=== PATIENT | female | born 1950 | race Caucasian/White ===

== ENCOUNTER 2021-10-03 09:19 | Day surgery (SDC) | payer OTHER, MEDICARE ==
[~2021-10-03] VITALS: Ht 170.2 cm; Wt 70.3 kg
[2021-10-03] MEDS ORDERED: OXYMETAZOLINE HCL 0.05% NASAL SPRAY NS ONE (12:25)
[2021-10-03] MEDS ORDERED: ONDANSETRON HCL 4 MG/2 ML VIAL IVP ONE (12:25)
[2021-10-03] MEDS ORDERED: LIDOCAINE 1% 10 MG/ML, 20 ML MDV INJ ONE (12:25)
[2021-10-03] MEDS ORDERED: WATER FOR IRRIGATION,STERILE 1,000 ML IRRIG.SOLN IR ONE (12:25)
[2021-10-03] MEDS ORDERED: KETOROLAC TROMETHAMINE 30 MG VIAL IVP ONE (12:25)
[2021-10-03] MEDS ORDERED: LIDOCAINE/EPI 1% 1:100000 20 ML VIAL INJ ONE (12:25)
[2021-10-03] MEDS ORDERED: NS 1000 ML IV.SOLN IV ONE (12:25)
[2021-10-03] MEDS ORDERED: NS IRRIG SOLN 1000 ML IR ONE (12:25)
[2021-10-03] MEDS ORDERED: EPINEPHrine HCL 1 MG/ML VIAL IV ONE (12:25)
[2021-10-03] MEDS ORDERED: DESFLURANE 15 MIN GAS INH ONE (12:25)
[2021-10-03] MEDS ORDERED: ROCURONIUM BROMIDE 10 MG/ML (ZEMURON) IV ONE (12:25)
[2021-10-03] MEDS ORDERED: PROPOFOL 200MG/ 20ML VIAL (DIPRIVAN) IV ONE (12:25)
[2021-10-03] MEDS ORDERED: METOCLOPRAMIDE HCL 10 MG/2 ML VIAL IVP PRN (13:15)
[2021-10-03] MEDS ORDERED: hydrALAZINE HCL 20 MG/ML VIAL IVP PRN (13:15)
[2021-10-03] MEDS ORDERED: LABETALOL 100 MG/ 20ML VIAL IVP PRN (13:15)
[2021-10-03] MEDS ORDERED: MIDAZOLAM HCL 2 MG/2 ML VIAL (VERSED) IVP PRN (13:15)
[2021-10-03] MEDS ORDERED: NACL 0.9% 1,000 ML IV SCH (13:15)
[2021-10-03] MEDS ORDERED: HYDROmorphone 1 MG/ML INJ. CARTRIDGE IVP PRN ×2 (13:15)
[2021-10-03] MEDS ORDERED: MEPERIDINE HCL/PF 25 MG/ML DISP.SYRIN IVP PRN (13:15)
[2021-10-03] MEDS: HYDROmorphone 1 MG/ML INJ. CARTRIDGE ONE ×3 (14:26→14:51)
[2021-10-03] MEDS ORDERED: ACETAMINOPHEN I.V. 1000 MG 100 ML IV ONE (15:41)
[2021-10-03 16:55] VITALS: BP_SYST 134
== END 2021-10-03 12:50 | disposition home or self-care (01) ==
LOC: SDS 09:19 → SMU 09:21 → SDS 12:50
PROVIDERS: ATTEND Otolaryngology
DX: J32.4 Chronic pansinusitis (principal); G47.33 Obstructive sleep apnea (adult) (pediatric); E66.9 Obesity, unspecified; K21.9 Gastro-esophageal reflux disease without esophagitis; E11.610 Type 2 diabetes mellitus with diabetic neuropathic arthropathy; E03.9 Hypothyroidism, unspecified; Z88.0 Allergy status to penicillin; Z88.1 Allergy status to other antibiotic agents; Z20.822 Contact with and (suspected) exposure to COVID-19; Z79.899 Other long term (current) drug therapy
CPT/HCPCS: 31255; 31256; 31298; 36415 ×2; 82948; 82962; 87070 ×2; 87075; 87101; 87426; 88305; 88311; C1726; J0131; J0171; J1170; J1885; J2001; J2405; J2704; J7030; U0003; 88313